=== PATIENT | female | born 1980 | race Caucasian/White ===

== ENCOUNTER 2019-05-26 02:58 | Emergency (ER) | payer BC, SELFPAY ==
[2019-05-26 02:59] VITALS: BP 157/95; PULSE 104; RESP 19; TEMP 36.6; O2SAT 100; BMI 27.6
--- NOTE | 2019-05-26 03:16 | EKG12_ITS ---
Test Reason : CP Blood Pressure : / mmHG Vent. Rate : 100 BPM Atrial Rate : 100 BPM P-R Int : 184 ms QRS Dur : 076 ms QT Int : 336 ms P-R-T Axes : 069 075 063 degrees QTc Int : 433 ms Normal sinus rhythm Normal ECG Confirmed by TROY MOHAN, SUMAN ([id number]), photography editor JAQUELIN ANGULO ([id number]) on 05/27/2019 11:39:40 AM Referred By: JUSTO Confirmed By:SUMAN SIMMONS MD
--- NOTE | 2019-05-26 03:16 | RAD_ITS ---
STUDY: X-RAY CHEST REASON FOR EXAM: Female, 39 years old. Chest pain TECHNIQUE: PA and lateral COMPARISON: None. FINDINGS: The lungs are clear and expanded. There is no demonstrated pleural abnormality. Normal size heart. Normal mediastinum and onesimo. Normal visualized pulmonary arteries. Normal visualized aortic arch and descending thoracic aorta. Normal visualized thoracic spine. Normal visualized ribs, clavicles, and shoulders. There is no demonstrated abnormality of the visualized soft tissue structures of the upper abdomen. RAD/Chest PA and Lateral IMPRESSION: Negative x-ray examination of the chest. Electronically Signed: Brennen Bazan, at 4:02 EDT Tel , Service support ,
--- NOTE | 2019-05-26 03:17 | ED.DCSUM_ITS ---
History of Present Illness Chief Complaint: Chest Pain Informant: Patient Narrative: She presents with chest discomfort. She stated 30 minutes ago she woke up and had substernal chest discomfort in a bandlike pain. She also has some discomfort in her shoulder. She is never had this before. It waxes and wanes. Currently is moderate to severe. She tried some Tums at home. She denies any cardiac PE or dissection risk factors. Has any abdominal pain. No nausea or vomiting. No history of stress test. No history of coronary artery disease. Worsened by nothing. Relieved by nothing. It seems to ease up and then come back. Past Medical History - Allergies and Home Meds Allergies/Adverse Reactions: Allergies No Known Allergies Allergy (Verified 05/26/19 03:02) Primary Care Physician: Fady Degroot,Out of [NON-STAFF] - Prior records reviewed: Yes Past Medical History: - - Kidney stone Surgical History: - - Lithotripsy Smoking Status: Never smoker Alcohol: Occasional Drugs: None Review of Systems General: Denies: Chills, Fever, Sweats Eyes: Denies: Visual changes - bilaterally, Diplopia ENT: Denies: Rhinorrhea, Sore throat Cardiovascular: Reports: Chest pain - Will take her breath away but not short of breath. Denies: Palpitations Respiratory: Denies: Dyspnea, Cough, Dyspnea on exertion Gastrointestinal: Denies: Abdominal pain, Nausea, Vomiting, Diarrhea, Melena, Hematochezia Genitourinary: Denies: Dysuria, Hematuria, Frequency Musculoskeletal: Denies: Back pain, Extremity Pain Skin: Denies: Rash, Wounds Neurological: Denies: Headache, Weakness, Numbness Physical Exam Vital Signs/Narrative: Vital Signs Temp Pulse Resp BP Pulse Ox 05/26/19 02:59 97.9 F 104 H 19 H 157/95 H 100 General: Well nourished, Well developed, No Acute Distress Head: Normocephalic, Atraumatic Eyes: Perrl, EOMI ENT: Moist mucous membranes, No rhinorrhea Neck: Supple, Nontender Cardiovascular: Regular rhythm, No murmurs, Tachycardia Respiratory: No distress, CTA bilaterally, Chest nontender Abdomen: Soft, Nontender, Nondistended, Normal bowel sounds Back: Nontender, Normal Inspection Extremities: Nontender, No edema Skin: Normal color, No rash Neurological: Alert, Oriented x3, Cranial nerves II-XII grossly intact, Normal Strength, Normal Sensation Psychological: Normal affect, Normal Mood Diagnostic/Tx/Re-eval - Medical Decision Making EKG shows normal sinus rhythm at a rate of 100. No ischemic findings. Lab work chest x-ray obtained. Patient given a dose of morphine and Zofran. Lab work shows no acute abnormalities. Troponin is negative. CBC shows no major abnormalities. Chest x-ray normal. Patient consented to repeat delta testing. Delta 2-hour troponin and EKG also obtained. Repeat troponin negative. EKG shows sinus rhythm at a rate of 76 without ischemia. Unchanged from previous. On reevaluation the patient's pain is resolved. Resting comfortably. I have a low suspicion for acute PE or dissection. I feel she can follow-up as an outpatient be discharged. ED Disposition - Plan for ED Patient: Disposition: [facility] Unit Diagnosis: Non-cardiac chest pain Instructions: CHEST PAIN, Uncertain Cause Referrals: [facility] Doctor,Out of [NON-STAFF] -
[2019-05-26 03:19] VITALS: O2SAT 98
[2019-05-26] MEDS: Morphine 4 MG/ML Syringe IV (03:22)
[2019-05-26] MEDS: Ondansetron 4 MG/2 ML Vial IV (03:22)
[2019-05-26 03:29] LABS: Absolute Lymphocyte Count 3.83 X10^3/uL (0.83-4.51); Absolute Neutrophil Count 5.2 X10^3/uL (2.0-7.7); Basophil# 0.03 X10^3/uL; Basophil% 0.3 % (0-1); Eosinophil# 0.24 X10^3/uL; Eosinophils% 2.3 % (0-5); Hematocrit 39.6 % (37-47); Hemoglobin 13.3 g/dL (12.0-15.0); Lymphocyte # 3.83 X10^3/ul (4.0); Lymphocyte % 36.5 % (19-41); Mean Corp Hgb Conc 33.6 g/dL (32-36); Mean Corpuscular Hgb 29.8 pg (27.0-32.0); Mean Corpuscular Volume 88.8 fL (81-99); Mean Platelet Vol. 9.4 fl (6.2-12.0); Monocyte# 1.19 X10^3/uL; Monocyte% 11.3 % (0-10); NRBC Flagged by Analyzer 0 % (0-5); Neutrophil # 5.17 X10^3/uL (2.7-7.7); Neutrophil % 49.2 % (47-70); Platelet Count 297 K/mm3 (150-450); RBC Distribution Width CV 12.4 % (11.6-14.6); RBC Distribution Width SD 40.3 fl (35.1-43.9); Red Blood Count 4.46 M/mm3 (4.2-5.4); White Blood Count 10.5 K/mm3 (4.4-11.0)
[2019-05-26 03:44] LABS: AST(SGOT) 76 U/L (15-37); Alanine Aminotransfer ALT/SGPT 52 U/L (13-56); Albumin, Serum 3.8 g/dL (3.2-5.0); Alkaline Phosphatase 59 U/L (45-117); Anion Gap 11 (5-15); BUN 18 mg/dL (7-18); BUN/Creat Ratio 21.9 RATIO (10-20); Bilirubin, Direct 0.06 mg/dL (0.00-0.30); Calcium,Total 9.1 mg/dL (8.5-10.1); Chloride 108 mmol/L (98-107); Creatinine, Serum 0.82 mg/dL (0.55-1.02); EST Glomerular Filtration Rate 81 mL/min (>60); Est Glom Filt Rate - Afr Amer 98 mL/min (>60); Estimated Creatinine Clearance 77.96 ml/min; Globulin 3.5 g/dL (2.2-4.2); Glucose 107 mg/dL (74-106); Lipase 290 U/L (73-393); Potassium 3.4 mmol/L (3.5-5.1); Protein, Total 7.3 g/dL (6.4-8.2); Sodium Level 144 mmol/L (136-145)
[2019-05-26 04:06] VITALS: BP 118/82; PULSE 90; RESP 20; O2SAT 99
[2019-05-26 05:05] VITALS: BP 131/85; PULSE 78; RESP 16; O2SAT 95
--- NOTE | 2019-05-26 05:08 | EKG12_ITS ---
Test Reason : REPEAT Blood Pressure : / mmHG Vent. Rate : 076 BPM Atrial Rate : 076 BPM P-R Int : 188 ms QRS Dur : 082 ms QT Int : 374 ms P-R-T Axes : 066 062 048 degrees QTc Int : 420 ms Normal sinus rhythm Normal ECG Confirmed by TROY MOHAN, SUMAN ([id number]), design editor JAQUELIN ANGULO ([id number]) on 05/27/2019 11:39:55 AM Referred By: JUSTO Confirmed By:SUMAN SIMMONS MD
[2019-05-26 06:36] VITALS: BP 119/78; PULSE 71; RESP 15; O2SAT 94
== END 2019-05-26 06:43 | disposition home or self-care (01) ==
PROVIDERS: Emergency Provider Emergency Medicine
DX: R07.89 Other chest pain (principal); Z87.442 Personal history of urinary calculi
CPT/HCPCS: 36415; 71046; 80048; 80076; 83690; 84484; 85025; 93005; 96374; 96375; 99285; A4216; J2405